=== PATIENT | male | born 1995 | race Caucasian/White ===

== ENCOUNTER 2018-05-18 19:09 | Emergency (ER) | payer OTHER ==
[2018-05-18] MEDS: IBUPROFEN 800 MG TAB PO (19:59)
== END 2018-05-18 21:20 | disposition home or self-care (01) ==
LOC: FTE 19:09
DX: M25.562 Pain in left knee (principal); F17.210 Nicotine dependence, cigarettes, uncomplicated
CPT/HCPCS: 73562; 99283-25